=== PATIENT | female | born 2000 | race American Indian/Alaskan Native ===

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

== ENCOUNTER 2021-05-08 06:34 | Emergency (ER) | payer MEDICAID, OTHER ==
--- NOTE | 2021-05-08 07:41 | Emergency Department Report ---
ED Peds HEENT HPI - General Chief Complaint: Sore Throat Stated Complaint: SORE THROAT Time Seen by Provider: 05/08/21 07:40 Source: patient Mode of arrival: Ambulatory Limitations: No Limitations - Related Data Previous Rx's Medication Instructions Recorded Last Taken Type Nitrofurantoin [place]/M-Cryst 100 mg PO Q12HR 7 Days #14 capsule 12/02/17 Unknown Rx [Macrobid CAP] Phenazopyridine [Pyridium] 100 mg PO Q8H PRN #9 tab 12/02/17 Unknown Rx Amoxicillin/Potassium Clav 1 each PO BID #14 tablet 01/21/18 Unknown Rx [Augmentin 875-125 Tablet] Famotidine [Pepcid] 40 mg PO QHS #10 tablet 07/18/18 Unknown Rx Metoclopramide HCl [Reglan TAB] 5 mg PO TID PRN #10 tablet 07/18/18 Unknown Rx Bacitracin Zinc 1 applic TP BID #120 gm 01/10/19 Unknown Rx Acyclovir [Zovirax Tab] 400 mg PO Q8H #30 tab 03/24/19 Unknown Rx Doxycycline Hyclate [Doxycycline 100 mg PO Q12HR #20 tab 03/24/19 Unknown Rx Hyclate TAB] Ibuprofen [Motrin] 400 mg PO Q8H PRN #20 tablet 03/24/19 Unknown Rx Ondansetron [Zofran Odt] 4 mg PO Q6HR PRN #15 tab.rapdis 03/24/19 Unknown Rx metroNIDAZOLE [Flagyl] 500 mg PO Q12HR #20 tab 03/24/19 Unknown Rx Allergies Allergy/AdvReac Type Severity Reaction Status Date / Time No Known Allergies Allergy Verified 06/21/18 23:56 ED Review of Systems ROS: Stated complaint: SORE THROAT Other details as noted in HPI Pediatric Past Medical History - Chronic Health Problems Additional medical history: Post Vaginal 7 weeks ED Peds HEENT EXAM - General Limitations: No Limitations ED Course Vital Signs 05/08/21 06:44 Pulse Rate 100 H Respiratory 18 Rate Blood Pressure 120/61 O2 Sat by Pulse 96 Oximetry Critical care attestation.: If time is entered above; I have spent that time in minutes in the direct care of this critically ill patient, excluding procedure time. ED Disposition Condition: Stable
[2021-05-08] MEDS ORDERED: IBUPROFEN 800 MG TAB PO ONE (07:42)
--- NOTE | 2021-05-08 07:42 | Emergency Department Report ---
Minor Respiratory - HPI Chief Complaint: Sore Throat Stated Complaint: SORE THROAT Time Seen by Provider: 05/08/21 07:40 Duration: 3 Days Pain Location: Throat Severity: mild Minor Respiratory: Yes Sore Throat, Yes Able to Tolerate Fluids, No Rhinorrhea, No Ear Pain, No Cough, No Sick Contacts, No Hemoptysis, No Chest Pain, No Shortness of Breath, No Fever Other History: 20 YO COMES TO ER CO SORE THROAT FOR SEVERAL DAYS. NO FEVER OR CHILLS. NO SOB. NO CP. TAKING PO DURING TRIAGE. ABC INTACT. VS NORMAL. NO FEVER. ED Review of Systems ROS: Stated complaint: SORE THROAT Other details as noted in HPI Comment: All other systems reviewed and negative ED Past Medical Hx - Past Medical History Previous Medical History?: No Additional medical history: Post Vaginal 7 weeks - Surgical History Past Surgical History?: No - Family History Family history: no significant - Social History Smoking Status: Never Smoker Substance Use Type: None - Medications Home Medications: Home Medications Medication Instructions Recorded Confirmed Last Taken Type Nitrofurantoin [place]/M-Cryst 100 mg PO Q12HR 7 Days #14 capsule 12/02/17 Unknown Rx [Macrobid CAP] Phenazopyridine [Pyridium] 100 mg PO Q8H PRN #9 tab 12/02/17 Unknown Rx Amoxicillin/Potassium Clav 1 each PO BID #14 tablet 01/21/18 Unknown Rx [Augmentin 875-125 Tablet] Famotidine [Pepcid] 40 mg PO QHS #10 tablet 07/18/18 Unknown Rx Metoclopramide HCl [Reglan TAB] 5 mg PO TID PRN #10 tablet 07/18/18 Unknown Rx Bacitracin Zinc 1 applic TP BID #120 gm 01/10/19 Unknown Rx Acyclovir [Zovirax Tab] 400 mg PO Q8H #30 tab 03/24/19 Unknown Rx Doxycycline Hyclate [Doxycycline 100 mg PO Q12HR #20 tab 03/24/19 Unknown Rx Hyclate TAB] Ibuprofen [Motrin] 400 mg PO Q8H PRN #20 tablet 03/24/19 Unknown Rx Ondansetron [Zofran Odt] 4 mg PO Q6HR PRN #15 tab.rapdis 03/24/19 Unknown Rx metroNIDAZOLE [Flagyl] 500 mg PO Q12HR #20 tab 03/24/19 Unknown Rx Amoxicillin [Trimox CAP] 500 mg PO BID #20 capsule 05/08/21 Unknown Rx Minor Respiratory Exam - Exam General: Vital signs noted. No distress. Alert and acting appropriately. HEENT: Yes Pharyngeal Erythema, Yes Pharyngeal Exudates (BILATERAL; NO ABSCESS; NO TRISMUS), Yes Moist Mucous Membranes, No Rhinorrhea, No Conjuctival Injection, No Frontal Tenderness, No Maxillary Tenderness Ear: Neither TM Bulge, Neither TM Erythema, Neither EAC Pain, Neither EAC Discharge Neck: Yes Supple, No Adenopathy Lungs: Yes Good Air Exchange, No Wheezes, No Ronchi, No Stridor, No Cough, No Labored Respirations, No Retractions, No Use of Accessory Muscles, No Other Abnormal Lung Sounds Heart: Yes Regular, No Murmur Abdomen: Yes Normal Bowel Sounds, No Tenderness, No Peritoneal Signs Skin: No Rash, No Edema Neurologic: Alert and oriented, no deficits. Musculoskeletal: Unremarkable. ED Course Vital Signs 05/08/21 06:44 Pulse Rate 100 H Respiratory 18 Rate Blood Pressure 120/61 O2 Sat by Pulse 96 Oximetry ED Medical Decision Making - Medical Decision Making Vital Signs 05/08/21 05/08/21 06:44 08:04 Temperature 98.6 F Pulse Rate 100 H 97 H Respiratory 18 15 Rate Blood Pressure 120/61 Blood Pressure 107/70 [Right] O2 Sat by Pulse 96 98 Oximetry VSS NO FEVER NO ABSCESS TAKING PO AMBULATORY AND NON ILL APPEARING GIVEN MOTRIN PO FOR PAIN IN ER. DC HOME WITH DC PLAN OF CARE INCLUDING PCP FOLLOW UP, MEDS, HYDRATION. PT VERBALIZES UNDERSTANDING OF D/C PLAN OF CARE. - Differential Diagnosis URI/PHARYNGITIS Critical care attestation.: If time is entered above; I have spent that time in minutes in the direct care of this critically ill patient, excluding procedure time. ED Disposition Clinical Impression: Upper respiratory infection, Exudative pharyngitis, Otitis media Disposition: 01 HOME / SELF CARE / HOMELESS Is pt being admited?: No Does the pt Need Aspirin: No Condition: Stable Instructions: Upper Respiratory Infection, Adult Additional Instructions: MOTRIN OR TYLENOL FOR PAIN MED ORDERED TODAY AVOID ALCOHOL STAY WELL HYDRATED WITH WATER FOLLOW UP WITH PCP IN 48 HOURS FOR RECHECK REFERRAL BELOW Prescriptions: Amoxicillin [Trimox CAP] 500 mg PO BID #20 capsule Referrals: PRIMARY CARE, [Primary Care Provider] - 3-5 Days CRISTIAN LEPE MD [Staff Physician] - 3-5 Days Time of Disposition: 07:56
[2021-05-08 08:06] VITALS: BP 107/70
== END 2021-05-08 08:04 | disposition home or self-care (01) ==
LOC: ED 06:34
DX: J06.9 Acute upper respiratory infection, unspecified (principal); J02.9 Acute pharyngitis, unspecified; H66.90 Otitis media, unspecified, unspecified ear
CPT/HCPCS: 99281

== ENCOUNTER 2021-11-04 17:54 | Emergency (ER) | payer SELFPAY ==
[2021-11-04] MEDS ORDERED: AMOXICILLIN/K CLAV 875/125MG TAB PO ONE (21:40)
[2021-11-04] MEDS ORDERED: IBUPROFEN ORAL LIQD 100 MG/5 ML ORAL.LIQD PO ONE (21:40)
[2021-11-04] MEDS ORDERED: predniSONE 50 MG TAB PO ONE (21:40)
--- NOTE | 2021-11-04 21:44 | Emergency Department Report ---
ED General Adult HPI - General Chief complaint: Dental/Oral Stated complaint: MOUTH/JAW PAIN Source: patient Mode of arrival: Ambulatory Limitations: No Limitations - History of Present Illness Initial comments: Patient is 21-year-old -[place] female with no past medical history who presents to the ED with complaint of acute onset persistent right maxillary premolar molar toothache with swollen gums, also complains of sore throat and swollen tonsils on the right side for the last 2 days. Patient states that she has not been able to open her mouth and to eat because of persistent pain. Patient denies dizziness, traumatic injury, nausea and vomiting, shortness of breath, fever, chills, cough, change in vision, headache, nasal and sinus congestion, abdominal pain or diarrhea. MD Complaint: right maxillary premolar and molar toothache; sore throat -: Sudden, days(s) (2) Location: mouth Radiation: non-radiation Severity scale (0 -10): 7 Quality: aching, sharp Consistency: constant Improves with: none Worsens with: eating Associated Symptoms: denies other symptoms. denies: confusion, chest pain, cough, diaphoresis, fever/chills, headaches, loss of appetite, malaise, nausea/vomiting, rash, seizure, shortness of breath, syncope, other Treatments Prior to Arrival: none - Related Data Previous Rx's Medication Instructions Recorded Last Taken Type Nitrofurantoin Jenkins/M-Cryst 100 mg PO Q12HR 7 Days #14 capsule 12/02/17 Unknown Rx [Macrobid CAP] Phenazopyridine [Pyridium] 100 mg PO Q8H PRN #9 tab 12/02/17 Unknown Rx Amoxicillin/Potassium Clav 1 each PO BID #14 tablet 01/21/18 Unknown Rx [Augmentin 875-125 Tablet] Famotidine [Pepcid] 40 mg PO QHS #10 tablet 07/18/18 Unknown Rx Metoclopramide HCl [Reglan TAB] 5 mg PO TID PRN #10 tablet 07/18/18 Unknown Rx Bacitracin Zinc 1 applic TP BID #120 gm 01/10/19 Unknown Rx Acyclovir [Zovirax Tab] 400 mg PO Q8H #30 tab 03/24/19 Unknown Rx Doxycycline Hyclate [Doxycycline 100 mg PO Q12HR #20 tab 03/24/19 Unknown Rx Hyclate TAB] Ibuprofen [Motrin] 400 mg PO Q8H PRN #20 tablet 03/24/19 Unknown Rx Ondansetron [Zofran Odt] 4 mg PO Q6HR PRN #15 tab.rapdis 03/24/19 Unknown Rx metroNIDAZOLE [Flagyl] 500 mg PO Q12HR #20 tab 03/24/19 Unknown Rx Amoxicillin [Trimox CAP] 500 mg PO BID #20 capsule 05/08/21 Unknown Rx Baclofen [Lioresal] 10 mg PO Q12H PRN #20 tab 11/04/21 Unknown Rx Clindamycin [Clindamycin CAP] 300 mg PO Q8H #30 cap 11/04/21 Unknown Rx Ketorolac [Toradol] 10 mg PO Q8H PRN #20 tab 11/04/21 Unknown Rx traMADoL [Ultram] 50 mg PO Q6HR PRN #10 tablet 11/04/21 Unknown Rx Allergies Allergy/AdvReac Type Severity Reaction Status Date / Time No Known Allergies Allergy Verified 06/21/18 23:56 ED Review of Systems ROS: Stated complaint: MOUTH/JAW PAIN Other details as noted in HPI Constitutional: denies: chills, fever Eyes: denies: eye pain, eye discharge, vision change ENT: throat pain, dental pain (Right maxillary premolar molar toothache). denies: ear pain Respiratory: denies: cough, shortness of breath, wheezing Cardiovascular: denies: chest pain, palpitations Endocrine: no symptoms reported Gastrointestinal: denies: abdominal pain, nausea, vomiting, diarrhea Genitourinary: denies: urgency, dysuria, discharge Musculoskeletal: denies: back pain, joint swelling, arthralgia Skin: denies: rash, lesions Neurological: denies: headache, weakness, paresthesias Psychiatric: denies: anxiety, depression Hematological/Lymphatic: denies: easy bleeding, easy bruising ED Past Medical Hx - Past Medical History Additional medical history: Post Vaginal 7 weeks - Social History Smoking Status: Never Smoker Substance Use Type: None - Medications Home Medications: Home Medications Medication Instructions Recorded Confirmed Last Taken Type Nitrofurantoin Jenkins/M-Cryst 100 mg PO Q12HR 7 Days #14 capsule 12/02/17 Unknown Rx [Macrobid CAP] Phenazopyridine [Pyridium] 100 mg PO Q8H PRN #9 tab 12/02/17 Unknown Rx Amoxicillin/Potassium Clav 1 each PO BID #14 tablet 01/21/18 Unknown Rx [Augmentin 875-125 Tablet] Famotidine [Pepcid] 40 mg PO QHS #10 tablet 07/18/18 Unknown Rx Metoclopramide HCl [Reglan TAB] 5 mg PO TID PRN #10 tablet 07/18/18 Unknown Rx Bacitracin Zinc 1 applic TP BID #120 gm 01/10/19 Unknown Rx Acyclovir [Zovirax Tab] 400 mg PO Q8H #30 tab 03/24/19 Unknown Rx Doxycycline Hyclate [Doxycycline 100 mg PO Q12HR #20 tab 03/24/19 Unknown Rx Hyclate TAB] Ibuprofen [Motrin] 400 mg PO Q8H PRN #20 tablet 03/24/19 Unknown Rx Ondansetron [Zofran Odt] 4 mg PO Q6HR PRN #15 tab.rapdis 03/24/19 Unknown Rx metroNIDAZOLE [Flagyl] 500 mg PO Q12HR #20 tab 03/24/19 Unknown Rx Amoxicillin [Trimox CAP] 500 mg PO BID #20 capsule 05/08/21 Unknown Rx Baclofen [Lioresal] 10 mg PO Q12H PRN #20 tab 11/04/21 Unknown Rx Clindamycin [Clindamycin CAP] 300 mg PO Q8H #30 cap 11/04/21 Unknown Rx Ketorolac [Toradol] 10 mg PO Q8H PRN #20 tab 11/04/21 Unknown Rx traMADoL [Ultram] 50 mg PO Q6HR PRN #10 tablet 11/04/21 Unknown Rx ED Physical Exam - General Limitations: No Limitations General appearance: alert, in no apparent distress - Head Head exam: Present: atraumatic, normocephalic, normal inspection - Eye Eye exam: Present: normal appearance, PERRL, EOMI Pupils: Present: normal accommodation - ENT ENT exam: Present: mucous membranes moist, TM's normal bilaterally, normal external ear exam, other (Mildly swollen, mild erythematous right tonsil; right maxillary premolar and molar teeth tenderness) - Neck Neck exam: Present: normal inspection, full ROM, lymphadenopathy (Anterior cervical lymphadenopathy) - Respiratory Respiratory exam: Present: normal lung sounds bilaterally. Absent: respiratory distress, wheezes, rales, stridor, chest wall tenderness, accessory muscle use, decreased breath sounds - Cardiovascular Cardiovascular Exam: Present: regular rate, normal rhythm, normal heart sounds. Absent: systolic murmur, diastolic murmur, rubs, gallop - GI/Abdominal GI/Abdominal exam: Present: soft, normal bowel sounds. Absent: tenderness, guarding, rebound, hyperactive bowel sounds, hypoactive bowel sounds, organomegaly - Extremities Exam Extremities exam: Present: normal inspection, full ROM, normal capillary refill - Back Exam Back exam: Present: normal inspection, full ROM. Absent: tenderness, CVA tenderness (R), CVA tenderness (L), muscle spasm, paraspinal tenderness - Neurological Exam Neurological exam: Present: alert, oriented X3, CN II-XII intact, normal gait, reflexes normal - Psychiatric Psychiatric exam: Present: normal affect, normal mood - Skin Skin exam: Present: warm, dry, intact, normal color. Absent: rash ED Course Vital Signs 11/04/21 19:27 Temperature 98.5 F Pulse Rate 68 Respiratory 18 Rate Blood Pressure 123/64 O2 Sat by Pulse 100 Oximetry ED Medical Decision Making - Medical Decision Making This is 21-year-old -[place] female with no past medical history who presents to the ED with complaint of acute onset persistent right maxillary premolar molar toothache with swollen gums, also complains of sore throat and swollen tonsils on the right side for the last 2 days. Patient states that she has not been able to open her mouth and to eat because of persistent pain. In the ED, patient is alert and oriented x3 and is not in any distress. Patient was treated for pain in the ED and on reevaluation, patient's pain is well controlled medication. Patient will discharge home on pain medications and advised to follow-up with her primary care physician in 7 to 10 days for reevaluation. Patient is advised return to the ED immediately if symptoms get worse. - Differential Diagnosis Dental abscess; gingivitis; tonsillitis; pharyngitis; Critical care attestation.: If time is entered above; I have spent that time in minutes in the direct care of this critically ill patient, excluding procedure time. ED Disposition Clinical Impression: Acute bacterial tonsillitis, Dental abscess, Acute gingivitis Disposition: HOME / SELF CARE / HOMELESS Is pt being admited?: No Does the pt Need Aspirin: No Condition: Stable Instructions: Dental Abscess, [id number], Tonsillitis, [id number], Trench Mouth Additional Instructions: Take medication with food, drink plenty fluids and follow-up with your primary care physician in 7 to 10 days for reevaluation. Return to the ED immediately if symptoms get worse. Prescriptions: Clindamycin [Clindamycin CAP] 300 mg PO Q8H #30 cap Baclofen [Lioresal] 10 mg PO Q12H PRN #20 tab PRN Reason: Muscle Spasm Ketorolac [Toradol] 10 mg PO Q8H PRN #20 tab PRN Reason: Pain traMADoL [Ultram] 50 mg PO Q6HR PRN #10 tablet PRN Reason: Pain Referrals: [facility] [Outside] - 7-10 days Time of Disposition: 21:45 Print Language: SLOVENIAN
[2021-11-04 22:05] VITALS: BP 114/62
== END 2021-11-04 22:06 | disposition home or self-care (01) ==
LOC: ED 17:54
DX: J03.80 Acute tonsillitis due to other specified organisms (principal); B96.89 Other specified bacterial agents as the cause of diseases classified elsewhere; K04.7 Periapical abscess without sinus; K05.00 Acute gingivitis, plaque induced; Z79.899 Other long term (current) drug therapy
CPT/HCPCS: 99282; J7512